=== PATIENT | female | born 1940 | race Caucasian/White ===

== ENCOUNTER 2018-12-24 19:54 | Emergency (ER) | payer MEDICARE, OTHER ==
[2018-12-24 21:00] LABS: BASOPHILS % (AUTO) 0.3 % (0.0-5.0); EOSINOPHILS % (AUTO) 3.3 % (0.0-8.0); HEMATOCRIT 39.5 % (36-48); LYMPHOCYTES % (AUTO) 22.6 % (21.0-51.0); MEAN CORPUSCULAR HEMOGLOBIN 31.1 pg (27.0-33.0); MEAN CORPUSCULAR HGB CONC 33.8 g/dL (32.0-36.0); MONOCYTES % (AUTO) 8.3 % (3.0-13.0); NEUTROPHILS % (AUTO) 65.5 % (40.0-77.0); PLATELET COUNT (AUTO) 240 K/uL (130-400); RED BLOOD CELL COUNT(AUTO) 4.29 MIL/uL (4.00-5.50); RED CELL DISTRIBUTION WIDTH 14.7 % (11.0-15.5)
[2018-12-24 21:08] LABS: APPEARANCE,URINE Clear (CLEAR); BILIRUBIN,URINE Negative (NEGATIVE); COLOR,URINE Yellow (YELLOW); GLUCOSE, URINE (UA) Negative (NEGATIVE); KETONES,URINE Negative (NEGATIVE); LEUKOCYTE ESTERASE ,URINE Moderate (NEGATIVE); NITRATE,URINE Negative (NEGATIVE); OCCULT BLOOD,URINE Negative (NEGATIVE); PH,URINE 7.5 (5.0-8.0); PROTEIN,URINE Negative (NEGATIVE)
[2018-12-24 21:15] LABS: INR 1.02 (0.85-1.15); PARTIAL THROMBOPLASTIN TIME 27.8 SEC (26.3-35.5); PROTHROMBIN TIME 10.7 SEC (9.6-11.6)
[2018-12-24 21:16] LABS: RBC,URINE 0-1 /HPF (0-1)
[2018-12-24 21:17] LABS: BACTERIA,URINE Few /HPF (None Seen); SQUAMOUS EPITHELIAL CELL,UR Few /HPF (0-2)
[2018-12-24 21:17] LABS: RAPID GROUP A STREP NEGATIVE (NEGATIVE)
[2018-12-24 21:22] LABS: B-TYPE NATRIURETIC PEPTIDE 91 pg/mL (0-100)
[2018-12-24] MEDS ORDERED: GUAIFENESIN-DM 200/20 MG 10 ML ONE (21:26)
[2018-12-24] MEDS ORDERED: NITROGLYCERIN 1GM/1 INCH PACKET TD ONE (21:27)
[2018-12-24] MEDS ORDERED: ASPIRIN 325 MG TABLET ONE (21:27)
[2018-12-24] MEDS ORDERED: IPRATROPIUM/ALBUTEROL SULFATE 3 ML SOLUTION IH ONE (21:30)
[2018-12-24 21:33] LABS: CREATININE 1.1 mg/dL (0.5-1.5); POTASSIUM 3.7 mmol/L (3.5-5.1)
[2018-12-24 21:47] LABS: ALBUMIN 3.5 g/dL (3.5-5.0); BILIRUBIN,TOTAL 0.3 mg/dL (0.2-1.0); TOTAL PROTEIN, SERUM 7.1 g/dL (6.0-8.3)
== END 2018-12-24 23:17 | disposition home or self-care (01) ==
LOC: EDH 19:54
DX: K04.6 Periapical abscess with sinus (principal); R06.00 Dyspnea, unspecified; I10 Essential (primary) hypertension; J45.909 Unspecified asthma, uncomplicated; Z87.891 Personal history of nicotine dependence; Z88.2 Allergy status to sulfonamides; Z88.0 Allergy status to penicillin
CPT/HCPCS: 36415; 70486; 71045; 80053; 81001; 82550; 83605; 83880; 84443; 84484; 85025; 85610; 85730; 87040; 87804; 87880; 93005; 94640

== ENCOUNTER 2018-12-31 16:26 | Emergency (ER) | payer MEDICARE | END 2018-12-31 17:30 | disposition home or self-care (01) | LOC: EDH 16:26 | DX: R09.81 Nasal congestion (principal); J45.909 Unspecified asthma, uncomplicated; I10 Essential (primary) hypertension; Z88.2 Allergy status to sulfonamides; Z88.0 Allergy status to penicillin; Z87.891 Personal history of nicotine dependence | CPT/HCPCS: 99282 ==